=== PATIENT | female | born 1985 | race Caucasian/White ===

== ENCOUNTER 2022-12-22 18:10 | Emergency (ER) | payer OTHER, SELFPAY ==
--- NOTE | ~2022-12-22 | XR_ITS ---
EXAMINATION: XR ABDOMEN COMPLETE CLINICAL INDICATION: Constipation. COMPARISON: None available. TECHNIQUE: 2 views of the abdomen. FINDINGS: The bowel gas pattern is normal with no evidence of ileus or obstruction. Moderate stool noted in the descending colon No unusual soft tissue calcifications are noted. The bones are unremarkable. XR/XR abdomen min 2V IMPRESSION: 1. Moderate stool burden. 2. Nonobstructive bowel gas pattern.
--- NOTE | ~2022-12-22 | CT_ITS ---
EXAMINATION: CT ABDOMEN AND PELVIS WITH CONTRAST CLINICAL INFORMATION: Constipation for 9 days. Question small bowel obstruction. COMPARISON: None available. TECHNIQUE: Multidetector volumetric images were obtained from the superior aspect of the liver through the pubic symphysis following administration 85 mL of Omnipaque 350 intravenous contrast. Sagittal and coronal reformatted images were obtained on the technologist's workstation. Oral contrast: No This CT examination was performed using dose optimization techniques as appropriate, variously including the following: *Automated exposure control *Adjustment of mA and/or kV according to patient size (this includes techniques or standardized protocols for targeted exams where dose is matched to indication/reason for exam; i.e. extremities or head) *Use of iterative reconstruction technique DLP: 335 mGy-cm FINDINGS: LUNG BASES: Unremarkable. LIVER AND BILIARY TREE: Unremarkable. GALLBLADDER: Unremarkable. PANCREAS: Unremarkable. SPLEEN: Unremarkable. ADRENAL GLANDS: Unremarkable. KIDNEYS AND URETERS: Interpolar right renal subcentimeter hypoattenuating lesion, too small to characterize but statistically likely to represent a benign cyst for which no follow-up imaging is recommended. Otherwise unremarkable. GASTROINTESTINAL TRACT: Moderate colonic stool burden. No bowel dilation, wall thickening, or perienteric inflammatory findings. Normal appendix. VASCULAR: Unremarkable LYMPH NODES: No lymphadenopathy. PERITONEUM: No ascites. BLADDER: Unremarkable. PELVIC VISCERA: Unremarkable. ABDOMINAL AND PELVIC WALL: Unremarkable. OSSEOUS STRUCTURES: Unremarkable. CT/CT abdomen pelvis w IV con IMPRESSION: No acute abnormality of the abdomen or pelvis or evidence of bowel obstruction, as clinically queried.
--- NOTE | 2022-12-22 18:12 | ED_ITS ---
HPI - Nausea/Vomiting/Diarrhea General Chief complaint: Abdominal Pain Stated complaint: vomiting, constipation Time Seen by Provider: 12/22/22 18:59 Source: patient Mode of arrival: ambulatory Limitations: no limitations History of Present Illness HPI Narrative: 37 yold female presents to the ED for constipation for the past 9 days. Patient states abdomen distended, no bowel movements, and no flashes for the past 9 days. Patient states healthy diet and drink plenty of water. Patient states no relief with Doculase. Patient states no relief with [id number] constipation meds. Patient denies any weight loss. Patient states she is so constipated she vomited this morning after eating. Related Data Previous Rx's Medication Instructions Recorded lactulose 20 gram oral packet 20 g PO DAILY 2 days #2 ea 12/22/22 Allergies Allergy/AdvReac Type Severity Reaction Status Date / Time citalopram [From Celexa] Allergy Mild Rash Verified 12/22/22 18:13 Penicillins Allergy Mild Rash Verified 12/22/22 18:13 Review of Systems 2 Review of Systems: Constipation for 9 days Yes all other systems are reviewed and are negative PMFSH Social History Social History Smoked in Last 30 Days: No Use of substances other than those prescribed or required for medical reasons: Yes Substance Use Type: Marijuana Advance Directives: No Advance Directives Information Provided: No Physical Exam 2 Vital Signs: Vital Signs: Last Vital Signs Temp 98.8 F 12/22/22 20:35 Pulse 74 12/22/22 20:35 Resp 15 12/22/22 20:35 BP 121/7 L 12/22/22 20:35 Pulse Ox 100 12/22/22 20:35 O2 Del Method Room Air 12/22/22 20:35 BMI result Body Mass Index 19.9 Const: General: cooperative, healthy appearing, comfortable, no acute distress, well developed, alert, awake and Physically active O rientation/consciousness: oriented to person, oriented to place, oriented to time and patient oriented x3 HEENT: Head: Yes normal to inspection, Yes No palpable skull fracture present, Yes normocephalic and Yes atraumatic Eyes: General: appearance normal, both eyes and all related structures Neck: Neck: Yes normal visual inspection, Yes full ROM, Yes no lymphadenopathy, Yes no meningeal signs, Yes trachea midline, Yes supple, No anterior neck swelling and No tender Chest: Chest palpation & inspection: normal inspection of the chest and normal palpation of entire chest wall Resp: Effort & Inspection: normal respiratory effort and able to speak in complete sentences Auscultation: clear to auscultation bilaterally Cardio: Jugular venous distension: no JVD Heart sounds: S1 normal heart sound present and S2 normal heart sound present GI: Other: Negative hyperactive bowel sounds Inspection: Yes normal to inspection, No abdominal wall ecchymosis and Yes distended Palpation (GI): Soft to palpation, not firm, nontender, no guarding and not rigid : General: No CVA tenderness and Yes no CVA tenderness Back/Spine/Pelvis: Back: no CVA tenderness, No CVA tenderness and No back tenderness Skin: General skin exam: no rashes or lesions noted, elasticity normal and turgor normal Neuro: General: oriented to person, oriented to place, oriented to time, patient oriented x3, gait normal, tone normal, moves all extremities, Normal light touch and pain sensation, no meningeal signs, no focal motor deficits, CN's II-XI intact bilaterally and normal sensation to monofilament Extrem: General: Yes normal to inspection and Yes full ROM Psych: Appearance: grossly normal, well kempt and not disheveled Course Course Course Narrative: RME: 37-year-old female w/no sig PMHx presenting to the ED complaining of constipation x7-8 days with abdominal distention and N/V. Took OTC meds w/o relief. Denies still passing gas x6 days. denies similar sx in the past denies hx abdominal surgery or new meds. denies feeling urge to go Labs, UA, Abdomen XR ordered Full HPI, ROS and PE to be performed by primary ED provider. Medications Administered Discontinued Medications Generic Name Dose Route Start Last Admin Trade Name Freq PRN Reason Stop Dose Admin Iohexol 100 ml 12/22/22 20:55 12/22/22 20:55 Iohexol 350 Mg/Ml 100 Ml Infus..Btl IV 12/22/22 20:56 85 ml ONCE ONE Administration Lactulose 20 gm 12/22/22 19:42 12/22/22 19:53 Lactulose 20 Gm/30 Ml Solution PO 12/22/22 19:43 20 gm ONCE ONE Administration Magnesium Hydroxide 30 ml 12/22/22 21:46 12/22/22 21:53 Milk Of Magnesia 30 Ml Oral.Susp PO 12/22/22 21:47 30 ml ONCE ONE Administration Polyethylene Glycol 17 gm 12/22/22 19:42 12/22/22 19:54 Polyethylene Glycol 3350 17 Gm Powd.Pack PO 12/22/22 19:43 17 gm ONCE ONE Administration Medical Decision Making Medical Decision Making [facility] Narrative: 37-year-old female presents to ED with constipation for 9 days. Patient states vomiting and no flashes. Patient states abdomen distended. Patient denies any weight loss. Initial labs are normal. X-ray shows constipation no signs of bowel obstruction. Due to this being new for patient will send for CT scan to rule out small-bowel obstruction or mass. 9: 36pm Patient did not have a bowel movement. Abdominal CT scan negative for any mass, small bowel obstruction or any abdominal etiology. Patient will be discharged with constipation medication. Patient will be given information for Gastroenterology for follow-up. Patient not in distress Differential Diagnosis Differential Diagnoses: The differential diagnosis associated with the presentation includes (Constipation, small-bowel obstruction, mass, hernia) Admission/Observation Consideration of admission/observation: Escalation of care including admission/observation considered Lab Data [facility] Lab Attestation statement: I reviewed the patient's lab results. 12/22/22 19:08 12/22/22 19:08 Labs: Lab Results 12/22/22 Range/Units 19:08 WBC 6.4 (4.8-10.8) X10*3/uL RBC 3.93 L (4.20-5.50) X10*6/uL Hgb 12.4 (12.0-16.0) g/dl Hct 36.7 L (37.0-47.0) % MCV 93.4 (80.0-98.0) fL MCH 31.6 (27.0-33.0) pg MCHC 33.8 (31.0-35.0) g/dl RDW 12.2 (11.0-16.0) % Plt Count 264 (160-400) X10*3/uL MPV 9.4 (9.4-12.3) fL Immature Gran % (Auto) 0.2 (0.0-0.4) % Neut % (Auto) 58.0 (45-73) % Lymph % (Auto) 30.2 (20-40) % [place] % (Auto) 8.9 (2-11) % Eos % (Auto) 2.2 (0-4) % Baso % (Auto) 0.5 (0-2) % Lymph # (Auto) 1.9 (1.2-4.9) X10*3/uL [place] # (Auto) 0.6 (0.1-1.2) X10*3/uL Eos # (Auto) 0.1 (0.0-0.4) X10*3/uL Baso # (Auto) 0.0 (0.0-0.2) X10*3/uL Abs Immat Gran (auto) 0.01 (0.00-0.03) X10*3/uL Absolute Neuts (auto) 3.7 (2.0-8.3) x10*3/uL Absolute Nucleated RBC 0.000 (0.0-0.012) X10*3/uL Nucleated RBC % (auto) 0.0 (0.0-0.2) /100WBC Sodium 138 (135-145) mmol/L Potassium 3.7 (3.3-5.1) mmol/L Chloride 105 (96-108) mmol/L Carbon Dioxide 27 (22-29) mmol/L Anion Gap 10 L (12-20) BUN 9 (9-16) mg/dL Creatinine 0.98 (0.5-1.4) mg/dL Estim Creat Clear Calc 73.8 Estimated GFR > 60 Random Glucose 92 (60-115) mg/dL Calcium 9.1 (8.4-10.2) mg/dL Magnesium 1.9 (1.6-2.6) mg/dL Total Bilirubin 0.2 (0.0-1.0) mg/dL Direct Bilirubin < 0.2 (0.0-0.5) mg/dL AST 24 (5-31) U/L ALT 24 (0-31) U/L Alkaline Phosphatase 44 (39-117) U/L Total Protein 6.9 (6.5-8.0) g/dL Albumin 4.2 (3.5-5.0) g/dL Lipase 21 (8-78) U/L Urine Color Yellow Urine Appearance Clear Urine pH 6.5 (5.0-9.0) Ur Specific [place] 1.010 (1.005-1.025) Urine Protein Negative (Neg-Trace) mg/dL Urine Glucose (UA) Negative (Negative) mg/dL Urine Ketones Negative (Negative) mg/dL Urine Blood Negative (Negative) Urine Nitrite Negative (Negative) Ur Leukocyte Esterase Trace H (Negative) Urine RBC 0-2 (0-2) /HPF Urine WBC 0-5 (0-5) /HPF Ur Squamous Epith Cells 3-5 (0-2) /HPF Urine Bacteria None Seen (None Seen) Hyaline Casts 0-2 (0-2) /LPF Urine Test NEGATIVE (NEGATIVE) Independent Interpretation I performed an independent interpretation of an: Plain X-Ray and CT Scan Radiology Impression Discussion of test interpretation with radiology: I have reviewed the radiologist's reading. Independent Historian Clinical information obtained from an independent historian. History obtained from or confirmed by: Spouse External Record Review External record reviewed: Other (Prior visits) Prescription Management I considered prescription management with: Other (constipation) Discharge Plan Discharge Clinical Impression: Constipation Patient Disposition: Home, Self-Care Instructions: Constipation (ED) Additional Instructions: Recommend follow-up with private sector executive and primary care provider. Return to the ED immediate for any abdominal pain, nausea, vomiting, inability tolerate solid food/liquid, fever, chills, dysuria, hematuria, or any other concerning symptoms. Prescriptions: New lactulose 20 gram packet 20 g PO DAILY 2 Days Qty: 2 0RF Referrals: [facility] [Provider Group] (constipation for 9 days) Stand Alone Forms: Work/School Release Interventions: ED Discharge Assessment Last Done: 12/22/22 22:43 Discharge Date/Time: 12/22/22 22:43 Print Language: Czech
[2022-12-22 18:13] VITALS: BP 141/81; PULSE 83; RESP 18; TEMP 36.9; O2SAT 99; BMI 19.9
[2022-12-22 18:31] VITALS: BP 140/83; PULSE 79; RESP 16; TEMP 37.1; O2SAT 99
--- NOTE | 2022-12-22 19:10 | PC.NURSE ---
this rn assumed care of pt. pt a&ox4, respirations even and unlabored. pt denies pain at this time. resting in stretcher comfortably. pt urine obtained and sent to lab at this time.
[2022-12-22 19:14] LABS: MANUAL DIFF FLAG NO
[2022-12-22 19:16] LABS: Appearance Urine Clear; Color Urine Yellow; Glucose Urine UA Negative (Negative); Leukocyte Esterase Urine Trace (Negative); Nitrite Urine Negative (Negative); PH 6.5 (5.0-9.0); UMIC TRIGGER UACC YES; Urine Blood Negative (Negative); Urine Ketones Negative (Negative); Urine Protein Negative (Neg-Trace)
[2022-12-22 19:17] LABS: UPreg QC Valid YES; Urine Pregnancy NEGATIVE (NEGATIVE)
[2022-12-22 19:18] LABS: Basophils Percent Auto 0.5 % (0-2); Eosinophils Absolute Auto 0.1 X10*3/uL (0.0-0.4); Eosinophils Percent Auto 2.2 % (0-4); Hematocrit 36.7 % (37.0-47.0); Hemoglobin 12.4 g/dl (12.0-16.0); Imm Gran Abs Auto 0.01 X10*3/uL (0.00-0.03); Imm Gran Pct Auto 0.2 % (0.0-0.4); Lymphocytes Absolute Auto 1.9 X10*3/uL (1.2-4.9); Lymphocytes Percent Auto 30.2 % (20-40); Mean Corpuscular HGB Conc 33.8 g/dl (31.0-35.0); Mean Corpuscular Hemoglobin 31.6 pg (27.0-33.0); Mean Corpuscular Volume 93.4 fL (80.0-98.0); Mean Platelet Volume 9.4 fL (9.4-12.3); Monocytes Absolute Auto 0.6 X10*3/uL (0.1-1.2); Monocytes Percent Auto 8.9 % (2-11); Neutrophils Absolute Auto 3.7 x10*3/uL (2.0-8.3); Platelet Count 264 X10*3/uL (160-400); Red Blood Count 3.93 X10*6/uL (4.20-5.50); Red Cell Distribution Width 12.2 % (11.0-16.0); White Blood Count 6.4 X10*3/uL (4.8-10.8)
[2022-12-22 19:20] LABS: Bacteria Urine None Seen (None Seen); Hyaline Casts Urine 0-2 /LPF (0-2); RBC Urine 0-2 /HPF (0-2); WBC Urine 0-5 /HPF (0-5)
[2022-12-22 19:31] LABS: Alanine Aminotransferase 24 U/L (0-31); Albumin Level 4.2 g/dL (3.5-5.0); Alkaline Phosphatase 44 U/L (39-117); Anion Gap 10 (12-20); Aspartate Amino Transferase 24 U/L (5-31); Bilirubin Direct < 0.2 mg/dL (0.0-0.5); Bilirubin Total 0.2 mg/dL (0.0-1.0); Blood Urea Nitrogen 9 mg/dL (9-16); Calcium 9.1 mg/dL (8.4-10.2); Carbon Dioxide 27 mmol/L (22-29); Chloride 105 mmol/L (96-108); Creatinine Clr Calc Pharmacy 73.8; Estimated Glomerular Filt Rate > 60; Glucose Random 92 mg/dL (60-115); Lipase 21 U/L (8-78); Magnesium 1.9 mg/dL (1.6-2.6); Potassium 3.7 mmol/L (3.3-5.1); Sodium 138 mmol/L (135-145); Total Protein 6.9 g/dL (6.5-8.0)
[2022-12-22] MEDS: Lactulose 20 GM/30 ML SOLUTION PO (19:53)
[2022-12-22] MEDS: polyethylene glycoL 3350 17 GM POWD.PACK PO (19:54)
[2022-12-22 20:35] VITALS: BP 121/7; PULSE 74; RESP 15; TEMP 37.1; O2SAT 100
[2022-12-22] MEDS: iohexoL 350 MG/ML 100 ML INFUS..BTL IV (20:55)
[2022-12-22] MEDS: Milk of Magnesia 30 ML ORAL.SUSP PO (21:53)
== END 2022-12-22 22:43 | disposition home or self-care (01) ==
PROVIDERS: Physician Assistant; Emergency Provider Emergency Medicine
DX: K59.00 Constipation, unspecified (principal); R11.2 Nausea with vomiting, unspecified; R14.0 Abdominal distension (gaseous)
CPT/HCPCS: 36415; 74019; 74177; 80048; 80076; 81001; 81025; 83690; 83735; 85025; 99284; Q9967

== ENCOUNTER 2023-08-27 17:41 | Emergency (ER) | payer MEDICAID, SELFPAY ==
--- NOTE | ~2023-08-27 | XR_ITS ---
EXAMINATION: CHEST 2 VIEWS CLINICAL INFORMATION: CP. COMPARISON: No recent pertinent prior studies are available for comparison. TECHNIQUE: PA and lateral views of the chest obtained. FINDINGS: The lungs are well expanded. No focal infiltrate, effusion, edema, or pneumothorax. Cardiac and mediastinal silhouettes are within normal limits for technique. No acute bony abnormality seen XR/XR chest 2V IMPRESSION: No evidence of acute disease
--- NOTE | 2023-08-27 17:43 | ECG_ITS ---
Test Reason : CHEST PAIN Blood Pressure : / mmHG Vent. Rate : 076 BPM Atrial Rate : 076 BPM P-R Int : 112 ms QRS Dur : 096 ms QT Int : 392 ms P-R-T Axes : 073 046 050 degrees QTc Int : 441 ms Normal sinus rhythm Normal ECG No previous ECGs available Referred By: Imelda English Electronically Signed By:Aston Raymundo
[2023-08-27 18:14] VITALS: BP 114/74; PULSE 78; RESP 18; TEMP 36.6; O2SAT 98; BMI 19.0
--- NOTE | 2023-08-27 19:30 | ED_ITS ---
HPI - Chest Pain General Chief Complaint: Chest Pain Stated Complaint: Chest pain Related Data Previous Rx's ?Medication ?Instructions ?Recorded lactulose 20 gram oral packet 20 g PO DAILY 2 days #2 ea 12/22/22 Allergies Allergy/AdvReac Type Severity Reaction Status Date / Time citalopram [From Celexa] Allergy Mild Rash Verified 08/27/23 18:17 Penicillins Allergy Mild Rash Verified 08/27/23 18:17 [facility] Social History Social History Substance Use Type: Marijuana Advance Directives: No Advance Directives Information Provided: No Do you have a plan to hurt others: No Plan Physical Exam 2 Vital Signs: Vital Signs: Last Vital Signs Temp 98.8 F 08/27/23 21:51 Pulse 74 08/27/23 21:51 Resp 20 08/27/23 21:51 BP 130/79 08/27/23 21:51 Pulse Ox 100 08/27/23 21:51 O2 Del Method Room Air 08/27/23 21:51 BMI result Body Mass Index 19.0 Course Course Course Narrative: This is an RME: Additional HPI, ROS, PE not included below will be deferred to primary provider. RME assessment and note performed by: Imelda English PA-C This is a 38-year-old female who presents to the emergency department with complaints of midsternal chest pain x1 day. She also reports some heart palpitations and feeling as though there has an elephant on her chest. No pain radiation, no nausea also feeling short of breath. Plan: EKG, chest x-ray, further ER evaluation needed. Reevaluation(s) Reevaluation #1: Patient left without completing treatment. Medical Decision Making Lab Data 08/27/23 19:57 08/27/23 19:57 Labs: Lab Results 08/27/23 08/27/23 08/27/23 Range/Units 19:56 19:57 22:02 WBC 7.3 (4.8-10.8) X10*3/uL RBC 4.23 (4.20-5.50) X10*6/uL Hgb 13.4 (12.0-16.0) g/dl Hct 38.4 (37.0-47.0) % MCV 90.8 (80.0-98.0) fL MCH 31.7 (27.0-33.0) pg MCHC 34.9 (31.0-35.0) g/dl RDW 12.5 (11.0-16.0) % Plt Count 268 (160-400) X10*3/uL MPV 9.5 (9.4-12.3) fL Immature Gran % (Auto) 0.1 (0.0-0.4) % Neut % (Auto) 65.2 (45-73) % Lymph % (Auto) 27.0 (20-40) % [place] % (Auto) 5.5 (2-11) % Eos % (Auto) 1.9 (0-4) % Baso % (Auto) 0.3 (0-2) % Lymph # (Auto) 2.0 (1.2-4.9) X10*3/uL [place] # (Auto) 0.4 (0.1-1.2) X10*3/uL Eos # (Auto) 0.1 (0.0-0.4) X10*3/uL Baso # (Auto) 0.0 (0.0-0.2) X10*3/uL Abs Immat Gran (auto) 0.01 (0.00-0.03) X10*3/uL Absolute Neuts (auto) 4.7 (2.0-8.3) x10*3/uL Absolute Nucleated RBC 0.000 (0.0-0.012) X10*3/uL Nucleated RBC % (auto) 0.0 (0.0-0.2) /100WBC Sodium 141 (135-145) mmol/L Potassium 3.9 (3.3-5.1) mmol/L Chloride 104 (96-108) mmol/L Carbon Dioxide 27 (22-29) mmol/L Anion Gap 14 (12-20) BUN 8 L (9-16) mg/dL Creatinine 0.84 (0.5-1.4) mg/dL Estim Creat Clear Calc 79.0 Estimated GFR > 60 Random Glucose 94 (60-115) mg/dL Calcium 9.4 (8.4-10.2) mg/dL Magnesium 2.1 (1.6-2.6) mg/dL Total Bilirubin 0.3 (0.0-1.0) mg/dL Direct Bilirubin 0.1 (0.0-0.5) mg/dL AST 18 (5-31) U/L ALT 14 (0-31) U/L Alkaline Phosphatase 47 (39-117) U/L Troponin I High Sens < 2.7 < 2.7 (<3.5-17.0) ng/L Total Protein 7.3 (6.5-8.0) g/dL Albumin 4.6 (3.5-5.0) g/dL Beta HCG, Quant < 2 mIU/mL Influenza Type A (PCR) NEGATIVE (Negative) Influenza Type B (PCR) NEGATIVE (Negative) RSV RNA Qual (PCR) NEGATIVE (Negative) SARS-CoV-2 RNA (RT-PCR) NEGATIVE (Negative) Discharge Plan Discharge Clinical Impression: Chest pain Patient Disposition: Left W/O Completing Treatment Prescriptions: No Action lactulose 20 gram packet 20 g PO DAILY 2 Days Qty: 2 0RF Discharge Date/Time: 08/28/23 01:19
[2023-08-27 20:01] LABS: MANUAL DIFF FLAG NO
[2023-08-27 20:02] LABS: Basophils Percent Auto 0.3 % (0-2); Eosinophils Absolute Auto 0.1 X10*3/uL (0.0-0.4); Eosinophils Percent Auto 1.9 % (0-4); Hematocrit 38.4 % (37.0-47.0); Hemoglobin 13.4 g/dl (12.0-16.0); Imm Gran Abs Auto 0.01 X10*3/uL (0.00-0.03); Imm Gran Pct Auto 0.1 % (0.0-0.4); Mean Corpuscular HGB Conc 34.9 g/dl (31.0-35.0); Mean Corpuscular Hemoglobin 31.7 pg (27.0-33.0); Mean Corpuscular Volume 90.8 fL (80.0-98.0); Mean Platelet Volume 9.5 fL (9.4-12.3); Monocytes Absolute Auto 0.4 X10*3/uL (0.1-1.2); Monocytes Percent Auto 5.5 % (2-11); Neutrophils Absolute Auto 4.7 x10*3/uL (2.0-8.3); Neutrophils Percent Auto 65.2 % (45-73); Platelet Count 268 X10*3/uL (160-400); Red Blood Count 4.23 X10*6/uL (4.20-5.50); Red Cell Distribution Width 12.5 % (11.0-16.0); White Blood Count 7.3 X10*3/uL (4.8-10.8)
[2023-08-27 20:27] LABS: Alanine Aminotransferase 14 U/L (0-31); Albumin Level 4.6 g/dL (3.5-5.0); Alkaline Phosphatase 47 U/L (39-117); Anion Gap 14 (12-20); Aspartate Amino Transferase 18 U/L (5-31); Bilirubin Direct 0.1 mg/dL (0.0-0.5); Bilirubin Total 0.3 mg/dL (0.0-1.0); Blood Urea Nitrogen 8 mg/dL (9-16); Calcium 9.4 mg/dL (8.4-10.2); Carbon Dioxide 27 mmol/L (22-29); Chloride 104 mmol/L (96-108); Estimated Glomerular Filt Rate > 60; Glucose Random 94 mg/dL (60-115); HCG Quantitative < 2 mIU/mL; Magnesium 2.1 mg/dL (1.6-2.6); Potassium 3.9 mmol/L (3.3-5.1); Sodium 141 mmol/L (135-145); Total Protein 7.3 g/dL (6.5-8.0); Troponin-I High Sensitivity < 2.7 ng/L (<3.5-17.0)
[2023-08-27 20:39] LABS: Influenza A PCR NEGATIVE (Negative); Influenza B PCR NEGATIVE (Negative); Resp Syncy Virus RNA Qual PCR NEGATIVE (Negative); SARS COV2 PCR INHOUSE NEGATIVE (Negative)
[2023-08-27 21:51] VITALS: BP 130/79; PULSE 74; RESP 20; TEMP 37.1; O2SAT 100
[2023-08-27 22:44] LABS: Troponin-I High Sensitivity < 2.7 ng/L (<3.5-17.0)
--- NOTE | 2023-08-28 01:18 | PC.NURSE ---
not in waiting room at this time.
== END 2023-08-28 01:19 | disposition left against medical advice (07) ==
LOC: HO.ED 08-28 01:17
PROVIDERS: Physician Assistant Medical; Emergency Provider Emergency Medicine
DX: R07.9 Chest pain, unspecified (principal); Z03.818 Encounter for observation for suspected exposure to other biological agents ruled out
CPT/HCPCS: 0241U; 36415; 71046; 80048; 80076; 83735; 84484; 84702; 85025; 93005; 99283

== ENCOUNTER → 2023-08-27 17:43 | Outpatient (BNV) | payer MEDICAID, SELFPAY | PROVIDERS: Emergency Provider Emergency Medicine; Visit Provider Internal Medicine Cardiovascular Disease | DX: R07.9 Chest pain, unspecified (principal) | CPT/HCPCS: 93010 ==

== ENCOUNTER 2025-02-15 23:00 | Emergency (ER) | payer MEDICAID, SELFPAY ==
--- OUTSIDE RECORDS SUMMARY | 2025-02-15 05:00 | XMS_ITS ---
Author Organization [facility] Address [address] [place] [address] Care Team Providers Care Obedience Trainer Name Role Phone JARRETTKALE Primary Care Provider [phone] OMAR SHARIF [phone] Allergies Allergen (clinical drug ingredient) Drug/Non Drug Allergy documented on EMR Reaction Allergy Type Onset Date Status citalopram CeleXA rash (at 40mg at 20mg no problem) Drug Allergy Active paroxetine Paxil rash Drug Allergy Active quetiapine SEROquel sedated Drug Allergy Active oxycodone oxyCODONE vomiting/balance issues Drug Allergy Active Penicillin Rash Drug Allergy Active Reason For Referral Reason Increasing issues wi th postprandial abdominal bloating, diarrhea and intermittent constipation. Guaiac positive stool on rectal exam. Diagnosis 1 Postprandial abdomin al bloating (R14.0) Diagnosis 2 Guaiac + stool (R19. 5) Diagnosis 3 Intermittent constip ation (K59.09) Diagnosis 4 Chronic diarrhea (K5 2.9) Referral Organization [facility] soci[facility] Referring Provider First Name OMAR Referring Provider Last Name CHANTE Referring Provider Speciality Internal M edicine Referred Provider Specialty Gastroentero logy General Notes OMAR SHARIF 1 10:33:06 AM > Please send referral to [facility] or if unable to get in can then switch to [facility] for: 3 years with waxing and waning abdominal bloating after eating, diarrhea, intermittent constipation, fatigue and weakness as well as nausea with only rare episodes of vomiting. Family history of colon cancer in maternal grandmother requiring colostomy. Referral Priority Urgent REASON FOR VISIT Stomach issues Medications Medication SIG (Take, Route, Frequency, Duration) Notes Start Date End Date Status buPROPion HCl ER (XL) 300 MG Tablet Extended Release 24 Hour 1 tablet in the morning Orally Once a day Active Ciclopirox 8 % Solution 1 application Ex ternally Once a day 06/18/2024 Active Escitalopram Oxalate 20 MG Tablet 1 tablet orally Once a day Active Social History Tobacco Use: Social History Observation Description Date Details (start date - stop date) Former Smoker NA - NA Sex Assigned At : Social History Observation Description Sex Assigned At Female Social History Tobacco Use: Social Info Question Answer Notes Tobacco Control (Standard) Tobacco use: Former smoker How long has it been since you last smoked? 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 asbestos exposure: no Past year's travels: [place] alcohol use: no drug use: no Hobbies/Exercise habits: Yoga, g ardening, walking Coffee/Tea/Soda: yes 1 coffee, No te a or soda Marital Status single experience no Living with boyfriend Pets 1 dog smokers in household no Section Notes: quit in 2019 smoked 5 cigare ttes a day Vital Signs Blood pressure systolic 112 mm Hg 02/16/20 25 Blood pressure diastolic 74 mm Hg 025 Height 65.5 in 02/15/2025 Weight 120 lbs 02/15/2025 BMI 19.66 kg/m2 02/15/2025 Encounters Encounter Location Date Provider Diagnosis [facility] [address] [place] [address] 02/15/2025 OMAR SHARIF Postprandial abdominal bloating R14.0 ; Chronic diarrhea K52.9 ; Intermittent constipation K59.09 and Guaiac + stool R19.5 Assessments Encounter Date Diagnosis (ICD Code) Assessment Notes Treatment Notes Treatment Clinical Notes Section Notes 02/15/2025 Postprandial abdominal bloating (ICD-10 - R14.0) Labs ordered. Abdominal/pelvic CT ordered and pending approval. Referral to GI placed. Encouraged low-fat, lean protein, high-fiber diet. Avoid fried and fatty foods, junk food, alcohol. Watch coffee intake. Plenty of liquids. Further treatment and/or evaluation will be based on test results and GI evaluation. 02/15/2025 Chronic diarrhea (ICD-10 - K52.9) See postprandial abdominal bloating plan 02/15/2025 Intermittent constipation (ICD-10 - K59.09) See postprandial abdominal bloating plan 02/15/2025 Guaiac + stool (ICD-10 - R19.5) See postprandial abdominal bloating plan Plan Of Treatment Treatment Notes Assessment Notes Postprandial abdominal bloating Labs ord ered. Abdominal/pelvic CT ordered and pending approval. Referral to GI placed. Encouraged low-fat, lean protein, high-fiber diet. Avoid fried and fatty foods, junk food, alcohol. Watch coffee intake. Plenty of liquids. Further treatment and/or evaluation will be based on test results and GI evaluation. Chronic diarrhea See postprandial abd ominal bloating plan Intermittent constipation See postprandi al abdominal bloating plan Guaiac + stool See postprandial abd ominal bloating plan Pending Test Test Name Order Date CT Abdomen & Pelvis with Oral and IV con trast 02/15/2025 Future Test Test Name Order Date CBC With Differential/Platelet-[id number] Hepatic Function Panel [id number] 2024 Celiac Ab tTG DGP TIgA-[id number] 02/15/2025 Acute Hepatitis-[id number] 02/15/2025 Lipase-[id number] 02/15/2025 Amylase-[id number] 02/15/2025 BMP8+eGFR-[id number] 02/15/2025 Referrals Referral Date Details 02/15/2025 02/15/2025, Increasi ng issues with postprandial abdominal bloating, diarrhea and intermittent constipation. Guaiac positive stool on rectal exam. Next Appt Details Follow Up: prn, Reason: Labs ordered, CT abdomen and pelvis ordered pending approval, referral to GI placed. Further treatment and/or evaluation based on workup. Follow-up with Dr. Daily as scheduled in June, sooner if needed. Provider Name:KALE Graham, 06/21/2025 02:15:00 PM, [address] [place] [address], [phone], History and Physical Notes * HPI (History of Present Illness) Category Sub-Category Detail Notes Category Not es General Patient of Dr. Daily seen today for evaluation of chronic GI issues over the last 3 years that have been worsening especially over the last month. Patient notes starting in 2021 she was having issues with constipation at times and bloating. Symptoms waxed and waned throughout 2021 and 2022. Starting in 2023 started developing symptoms with diarrhea that would come and go primarily after eating along with abdominal bloating. Symptoms started to worsen in 2024 with increased bloating every time she would eat and diarrhea requiring her to run to the bathroom. Having yellow/bile colored stools and occasionally coffee ground looking stools with the diarrhea. She was feeling bloated and nauseous on a daily basis. Fatigue and headaches have been common over the last year. Notes with the diarrhea and unpleasant/foul odor. Symptoms seemed to increase in the summer 2024 and then worse over the last month. States anytime she eats she gets the symptoms. She does occasionally feel dizzy. She has not noted any abnormal weight loss, and has actually gained 3 pounds since her last visit. She did have an episode of vomiting in December but denied any blood in the vomitus or coffee-ground emesis. Here today she is symptom-free and notes that she has some good days. Last symptoms were yesterday evening. Seem to be worse after eating fried or fatty foods, holiday type foods , but does happen no matter what she eats just not as bad. Examination Category Sub-Category Detail Notes Category Not es General Examination HEENT: NC/AT, EOMI,PERRL, an d nonicteric Neck: supple, no lymphaden opathy Heart: RRR, no murmurs, cli cks or rubs, normal S1S2 Lungs: clear to auscultatio n Abdomen: soft, non tender/non distended, no masses palpated, no hepatosplenomegaly, normal active bowel sounds Extremities: no clubbing , cyanos is, or edema, normal ROM General Appearance no apparent distress , pleasant Skin: normal, no rash Neuro alert and oriented x 3, CN 2-12 intact, motor 5/5 bilaterally proximally and distally in all 4 extremities, no focal abnormality, gait normal Back: no CVA tenderness Rectal Chaparoned by Sonja Gore MA. External rectal exam was negative for any acute findings just small area of hemorrhoidal skin tag. No obvious bleeding or masses externally. Internal digital rectal exam revealed no evidence of masses or obvious lesions. Stool was mildly guaiac positive but not melanic. Consultation Request Notes Referral Date Referring Provider Referred Provider Not sarah 02/15/2025 OMAR SHARIF Increasing i ssues with postprandial abdominal bloating, diarrhea and intermittent constipation. Guaiac positive stool on rectal exam. Progress Notes * RITESH BEATTY EDOB: [birth year] (39 yo F)Acc No.[id number]:02/15/2025 Progress Notes Patient: RITESH HARRIS Provider: Samina ZAYAS :1985 A ge:39 Y S ex:Female Date:02/15/2025 Address:[address] [place] [address] [place], [phone] Pcp:KALE JARRETT Subjective: * Chief Complaints: * S tomach issues * HPI: G eneral: Patient of Dr. Daily seen today for evaluation of chronic GI issues over the last 3 years that have been worsening especially over the last month. Patient notes starting in 2021 she was having issues with constipation at times and bloating. Symptoms waxed and waned throughout 2021 and 2022. Starting in 2023 started developing symptoms with diarrhea that would come and go primarily after eating along with abdominal bloating. Symptoms started to worsen in 2024 with increased bloating every time she would eat and diarrhea requiring her to run to the bathroom. Having yellow/bile colored stools and occasionally coffee ground looking stools with the diarrhea. She was feeling bloated and nauseous on a daily basis. Fatigue and headaches have been common over the last year. Notes with the diarrhea and unpleasant/foul odor. Symptoms seemed to increase in the summer 2024 and then worse over the last month. States anytime she eats she gets the symptoms. She does occasionally feel dizzy. She has not noted any abnormal weight loss, and has actually gained 3 pounds since her last visit. She did have an episode of vomiting in December but denied any blood in the vomitus or coffee-ground emesis. Here today she is symptom-free and notes that she has some good days. Last symptoms were yesterday evening. Seem to be worse after eating fried or fatty foods, holiday type foods , but does happen no matter what she eats just not as bad. * ROS: S ee HPI. 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 * Hospitalization/Major Diagno stic Procedure: Partial Hospitalization for Eating Disorder 2008 [facility] [place] ankle pain 10/2016 hemorrhoids 09/05 Hospitalization Verified. * Family History: F ather: alive 66 yrs, healthy . M other: alive 64 yrs, healthy . S ibling # 1: alive 44 yrs, healthy . M aternal Grand Mother: colon cancer (age 70s). 1 brother(s) - healthy. .?Family History Verified.. No family history of breast cancer. [id number] [facility]/ [facility] (02/[facility]). * Social History: G eneral: S mokers in household: no. Alcohol use: no. Drug use: no. Coffee/Tea/Soda: yes, 1 coffee, No tea or soda. Marital Status: single. Living with: boyfriend. 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 Asbestos exposure: no. experience: no. Past year's travels: [place] 2024. Hobbies/Exercise habits: Yoga, gardening, walking. Pets: 1 dog. T obacco Use: T obacco Control (Standard) T obacco use: F ormer smoker, H ow long has it been since you last smoked? 1 -5 years, A dditional Findings: Tobacco user L ight cigarette smoker (1-9 cigs/day). Social History Verified. q uit in 2019 smoked 5 cigarettes a day. * Medications: T akingCiclopirox 8 % Solution 1 application Externally Once a day buPROPion HCl ER (XL) 300 MG Tablet Extended Release 24 Hour 1 tablet in the morning Orally Once a day Escitalopram Oxalate 20 MG Tablet 1 tablet orally Once a day Medication List reviewed and reconciled with the patientTaking Ciclopirox 8 % Solution 1 application Externally Once a day Taking buPROPion HCl ER (XL) 300 MG Tablet Extended Release 24 Hour 1 tablet in the morning Orally Once a day Taking Escitalopram Oxalate 20 MG Tablet 1 tablet orally Once a day Medication List reviewed and reconciled with the patient * Allergies: P enicillin: RashCeleXA: rash (at 40mg at 20mg no problem)oxyCODONE: vomiting/balance issuesSEROquel: sedatedPaxil: rashyesAllergies Verified. Objective: * Vitals: H t: 65.5 in, Wt: 120 lbs, Temp: 96.9 F, HR: 96 /min, BP:112/74mm Hg, BMI:19.66Index. * Examination: G eneral Examination: General Appearance n o apparent distress, pleasant. H EENT: N C/AT, EOMI,PERRL, and nonicteric. N hossein: s upple, no lymphadenopathy. H eart: R RR, no murmurs, clicks or rubs, normal S1S2. L ungs: c lear to auscultation. A bdomen: s oft, non tender/non distended, no masses palpated, no hepatosplenomegaly, normal active bowel sounds. B ack: n o CVA tenderness. S kin: n ormal, no rash. E xtremities: n o clubbing , cyanosis, or edema, normal ROM. R ectal C haparoned by Haley Gore MA. External rectal exam was negative for any acute findings just small area of hemorrhoidal skin tag. No obvious bleeding or masses externally. Internal digital rectal exam revealed no evidence of masses or obvious lesions.? Stool was mildly guaiac positive but not melanic. N euro a lert and oriented x3, CN 2-12 intact, motor 5/5 bilaterally proximally and distally in all 4 extremities, no focal abnormality, gait normal. Assessment: * Assessment: 1. P ostprandial abdominal bloating - R14.0 (Primary) 2 . C hronic diarrhea - K52.9 3 . I ntermittent constipation - K59.09 4 . G uaiac + stool - R19.5 Plan: * Treatment: 2. C hronic diarrhea L AB: CBC With Differential/Platelet-[id number] (Ordered for 02/15/2025) L AB: BMP8+eGFR-693975 (Ordered for 02/15/2025) L AB: Amylase-355864 (Ordered for 02/15/2025) L AB: Hepatic Function Panel [id number] (Ordered for 02/15/2025) L AB: Lipase-540809 (Ordered for 02/15/2025) L AB: Celiac Ab tTG DGP TIgA-[id number] (Ordered for 02/15/2025) L AB: Acute Hepatitis-746993 (Ordered for 02/15/2025) I maging: CT Abdomen & Pelvis with Oral and IV contrast Notes: See postprandial abdominal bloating plan ? Referral To:Gastroenterology Reason:Increasing issues with postprandial abdominal bloating, diarrhea and intermittent constipation. Guaiac positive stool on rectal exam. 3. I ntermittent constipation L AB: CBC With Differential/Platelet-337567 (Ordered for 02/15/2025) L AB: BMP8+eGFR-857901 (Ordered for 02/15/2025) L AB: Amylase-911389 (Ordered for 02/15/2025) L AB: Hepatic Function Panel [id number] (Ordered for 02/15/2025) L AB: Lipase-504258 (Ordered for 02/15/2025) L AB: Celiac Ab tTG DGP TIgA-[id number] (Ordered for 02/15/2025) L AB: Acute Hepatitis-037960 (Ordered for 02/15/2025) I maging: CT Abdomen & Pelvis with Oral and IV contrast Notes: See postprandial abdominal bloating plan ? Referral To:Gastroenterology Reason:Increasing issues with postprandial abdominal bloating, diarrhea and intermittent constipation. Guaiac positive stool on rectal exam. 4. G uaiac + stool L AB: CBC With Differential/Platelet-954752 (Ordered for 02/15/2025) L AB: BMP8+eGFR-663195 (Ordered for 02/15/2025) L AB: Amylase-495084 (Ordered for 02/15/2025) L AB: Hepatic Function Panel [id number] (Ordered for 02/15/2025) L AB: Lipase-557182 (Ordered for 02/15/2025) L AB: Celiac Ab tTG DGP TIgA-[id number] (Ordered for 02/15/2025) L AB: Acute Hepatitis-335774 (Ordered for 02/15/2025) I maging: CT Abdomen & Pelvis with Oral and IV contrast Notes: See postprandial abdominal bloating plan ? Referral To:Gastroenterology Reason:Increasing issues with postprandial abdominal bloating, diarrhea and intermittent constipation. Guaiac positive stool on rectal exam. * Follow Up: p rn (Reason: Labs ordered, CT abdomen and pelvis ordered pending approval, referral to GI placed. Further treatment and/or evaluation based on workup. Follow-up with Dr. Daily as scheduled in June, sooner if needed.) * Sign off status: Completed true * Provider: Radha SHARIF, PCrow. Date: Generated for Shayy jeffries/Augustine/Felicitaitting on: 11:31 PM EST
[2025-02-15 23:11] VITALS: BP 143/88; PULSE 96; RESP 20; TEMP 36.9; O2SAT 99; BMI 19.4
--- NOTE | 2025-02-15 23:26 | ED.GENADULT ---
HPI - General Adult General Chief complaint: Abdominal Pain Stated complaint: Keratin levels elevated Related Data Previous Rx's ?Medication ?Instructions ?Recorded lactulose 20 gram oral packet 20 g PO DAILY 2 days #2 ea 12/22/22 Allergies Allergy/AdvReac Type Severity Reaction Status Date / Time citalopram (From Celexa) Allergy Mild Rash Verified 02/15/25 23:17 Penicillins Allergy Mild Rash Verified 02/15/25 23:17 [facility] Social History Social History Substance Use Type: Marijuana Advance Directives: No Advance Directives Information Provided: No Do you have a plan to hurt others: No Plan Physical Exam ED Vital Signs: Vital Signs - 24 hr 02/15/25 23:11 Temperature 98.5 F Pulse Rate 96 Respiratory Rate 20 Blood Pressure 143/88 H Pulse Oximetry 99 Oxygen Delivery Method Room Air BMI result Body Mass Index 19.4 Course Course Course Narrative: RME, this is a rapid medical exam performed by Andrew More please refer to primary provider for complete H&P- 39-year-old female presents for evaluation of lower abdominal pain with vomiting and diarrhea. This has been going on for several months since the summer. She had outpatient labs today, creatinine was 0.8 her BUN was low at 7 and she was sent here for further evaluation. She is being worked up for celiac disease Medical Decision Making Lab Data 02/15/25 23:26 02/15/25 23:26 Labs: Lab Results 02/15/25 02/15/25 Range/Units 23:26 23:30 WBC 6.8 (4.8-10.8) X10*3/uL RBC 4.07 L (4.20-5.50) X10*6/uL Hgb 12.5 (12.0-16.0) g/dl Hct 36.4 L (37.0-47.0) % MCV 89.4 (80.0-98.0) fL MCH 30.7 (27.0-33.0) pg MCHC 34.3 (31.0-35.0) g/dl RDW 12.7 (11.0-16.0) % Plt Count 325 (160-400) X10*3/uL MPV 9.2 L (9.4-12.3) fL Immature Gran % (Auto) 0.1 (0.0-0.4) % Neut % (Auto) 61.1 (45-73) % Lymph % (Auto) 28.7 (20-40) % [place] % (Auto) 8.2 (2-11) % Eos % (Auto) 1.5 (0-4) % Baso % (Auto) 0.4 (0-2) % Lymph # (Auto) 2.0 (1.2-4.9) X10*3/uL [place] # (Auto) 0.6 (0.1-1.2) X10*3/uL Eos # (Auto) 0.1 (0.0-0.4) X10*3/uL Baso # (Auto) 0.0 (0.0-0.2) X10*3/uL Abs Immat Gran (auto) 0.01 (0.00-0.03) X10*3/uL Absolute Neuts (auto) 4.2 (2.0-8.3) x10*3/uL Absolute Nucleated RBC 0.000 (0.0-0.012) X10*3/uL Nucleated RBC % (auto) 0.0 (0.0-0.2) /100WBC Sodium 139 (135-145) mmol/L Potassium 3.6 (3.3-5.1) mmol/L Chloride 107 (96-108) mmol/L Carbon Dioxide 25 (22-29) mmol/L Anion Gap 11 L (12-20) BUN 8 L (9-16) mg/dL Creatinine 0.81 (0.5-1.4) mg/dL Estim Creat Clear Calc 80.1 Estimated GFR > 60 Random Glucose 116 H (60-115) mg/dL Calcium 8.9 (8.4-10.2) mg/dL Total Bilirubin 0.3 (0.0-1.0) mg/dL AST 24 (5-31) U/L ALT 18 (0-31) U/L Alkaline Phosphatase 42 (39-117) U/L Total Protein 6.6 (6.5-8.0) g/dL Albumin 4.3 (3.5-5.0) g/dL Lipase 21 (8-78) U/L Beta HCG, Quant < 2 mIU/mL Discharge Plan Discharge Clinical Impression: Abdominal pain Patient Disposition: Left W/O Completing Treatment Prescriptions: No Action lactulose 20 gram packet 20 g PO DAILY 2 Days Qty: 2 0RF Discharge Date/Time: 02/16/25 02:37
--- OUTSIDE RECORDS SUMMARY | 2025-02-15 23:31 | XMS_ITS | Patient Health Record ---
Author Organization [facility] Address [address] [place] [address] Care Team Providers Care Electrician Research Name Role Phone KALE JARRETT Primary Care Provider [phone] OMAR SHARIF [phone] Allergies Allergen (clinical drug ingredient) Drug/Non Drug Allergy documented on EMR Reaction Allergy Type Onset Date Status citalopram CeleXA rash (at 40mg at 20mg no problem) Drug Allergy Active paroxetine Paxil rash Drug Allergy Active quetiapine SEROquel sedated Drug Allergy Active oxycodone oxyCODONE vomiting/balance issues Drug Allergy Active Penicillin Rash Drug Allergy Active Reason For Referral Referred Organization [facility] alexis Referred Provider KALE JARRETT Referred Address [address] [place] [address],[place],[phone], Referred Provider Specialty Internal Med icine General Notes blank referral Referral Priority Routine Reason Error > [facility] r eferral needed for [facility] - [place] Scan Abdomen/Pelvis CPT 28730 - Diagnosis codes R14.0 & K52.9 - 8 visits Referred Organization [facility] Referred Provider KALE JARRETT Referred Address [address] [place] [address],[place],[phone], Referred Provider Specialty Internal Med icine General Notes this is an outgoing referral, copied t o outgoing Referral Priority Urgent Reason Increasing issues wi th postprandial abdominal bloating, diarrhea and intermittent constipation. Guaiac positive stool on rectal exam. Diagnosis 1 Postprandial abdomin al bloating (R14.0) Diagnosis 2 Guaiac + stool (R19. 5) Diagnosis 3 Intermittent constip ation (K59.09) Diagnosis 4 Chronic diarrhea (K5 2.9) Referral Organization [facility] Darion espinoza Referring Provider First Name OMAR Referring Provider Last Name CHANTE Referring Provider Speciality Internal M edicine Referred Provider Specialty Gastroentero logy General Notes ANTHONY SHARIFGERARD Demarco 1 10:33:06 AM > Please send referral to [facility] or if unable to get in can then switch to [facility] for: 3 years with waxing and waning abdominal bloating after eating, diarrhea, intermittent constipation, fatigue and weakness as well as nausea with only rare episodes of vomiting. Family history of colon cancer in maternal grandmother requiring colostomy. Referral Priority Urgent Reason [facility] Diagnosis 1 Postprandial abdomin al bloating (R14.0) Diagnosis 2 Chronic diarrhea (K5 2.9) Referral Organization [facility] Darion espinoza Referring Provider First Name KALE Referring Provider Last Name LUIZA Referring Provider Speciality Internal M edicine Referred Organization [facility] enter Outpatient Referred Address [address] [place] [id number], Referred Provider Specialty Radiology General Notes Joanne JONES Referral s 02/15/2025 03:21:06 PM > copied from 02/15/25 incoming referral > [facility] referral needed for [facility] - CT Scan Abdomen/Pelvis CPT 73176 - Diagnosis codes R14.0 & K52.9 - 8 visits, referral approved, fwd to [facility] Referral Priority Routine Medications Medication SIG (Take, Route, Frequency, Duration) Notes Start Date End Date Status buPROPion HCl ER (XL) 300 MG Tablet Extended Release 24 Hour 1 tablet in the morning Orally Once a day Active Ciclopirox 8 % Solution 1 application Ex ternally Once a day 06/18/2024 Active Escitalopram Oxalate 20 MG Tablet 1 tablet orally Once a day Active Immunizations Vaccine Route Administration Date Status Comme nts Influenza Unknown 11/13/2011 Administered Tdap (Adacel)11-64,State Supplied Unknown 11/13/2011 Ad ministered Social History Tobacco Use: Social History Observation [...] user Light cigarett e smoker (1-9 cigs/day) Smoking Are you a: never smoker Additional Details Category Social Info Options Details General 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, 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 asbestos exposure: no Past year's travels: [place] alcohol use: no drug use: no Hobbies/Exercise habits: Yoga, g ardening, walking Coffee/Tea/Soda: yes 1 coffee, No te a or soda Marital Status single experience no Living with boyfriend Pets 1 dog smokers in household no Section Notes: quit in 2020 quit in 2020 quit in 2020 smoked 5 cigare ttes a day Problems Problem Type SNOMED Code ICD Code Onset Dates Problem Status W/U Status Risk Notes Problem Tobacco abuse (3278550479) Tobacco Abuse (305.1) Active confirmed Problem Mixed anxiety and depressive disorder (574312909) Depression with anxiety (300.4) Active confirmed Problem Obstructive sleep apnea syndrome (82886679) KIZZY (obstructive sleep apnea) (G47.33) Active confirmed Problem Insomnia (323249858) Insomnia, unspecified (G47.00) Active confirmed Problem Dysthymia (90521061) Dysthymic disorder (F34.1) Active confirmed Problem Anxiety (22659107) Anxiety (F41.9) Active confirmed Problem Post traumatic stress disorder (47592276) Post traumatic stress disorder (F43.10) Active confirmed Problem New daily persistent headache (96080874304067 5) New daily persistent headache (G44.52) Active confirmed Problem Tobacco user (635138679) Cigarette nicotine dependence without complication (F17.210) Active confirmed Vital Signs Blood pressure diastolic 74 mm Hg 02/15/2025 Height 65.5 in 02/15/2025 Blood pressure systolic 112 mm Hg 02/15/2025 Weight 120 lbs 02/15/2025 BMI 19.66 kg/m2 02/15/2025 Encounters Encounter Location Date Provider Diagnosis [facility] [address] [place] [phone] 06/18/2024 KALE JARRETT Dysthymic disorder F34.1 and Nail fungus B35.1 [facility] [address] [place] [phone] 02/15/2025 OMAR SHARIF Postprandial abdominal bloating R14.0 ; Chronic diarrhea K52.9 ; Intermittent constipation K59.09 and Guaiac + stool R19.[address] [phone] 02/14/[address] [phone] 02/15/[address] [address] [facility] En[facility] Date Diagnosis (ICD Code) Assessment Notes Treatment Notes Treatment Clinical Notes Section Notes 06/18/2024 Dysthymic disorder (ICD-10 - F34.1) doing really well..will cont meds..call if nissues 06/18/2024 Nail fungus (ICD-10 - B35.1) rx sent 6-12 months 02/15/2025 Chronic diarrhea (ICD-10 - K52.9) See postprandial abdominal bloating plan 02/15/2025 Postprandial abdominal bloating (ICD-10 - R14.0) Labs ordered. Abdominal/pelvic CT ordered and pending approval. Referral to GI placed. Encouraged low-fat, lean protein, high-fiber diet. Avoid fried and fatty foods, junk food, alcohol. Watch coffee intake. Plenty of liquids. Further treatment and/or evaluation will be based on test results and GI evaluation. 02/15/2025 Intermittent constipation (ICD-10 - K59.09) See postprandial abdominal bloating plan 02/15/2025 Guaiac + stool (ICD-10 - R19.5) See postprandial abdominal bloating plan Plan Of Treatment Pending Test Test Name Order Date XR Chest 2 views 10/16/2022 CT Abdomen & Pelvis with Oral and IV con trast 02/15/2025 CBC W/OUT AUTOMATED DIFF 12/25/2021 Future Test Test Name Order Date CBC With Differential/Platelet-[id number] Hepatic Function Panel [id number] 2024 Celiac Ab tTG DGP [id number] 02/15/2025 Acute Hepatitis-[id number] 02/15/2025 Lipase-[id number] 02/15/2025 Amylase-[id number] 02/15/2025 BMP8+[id number] 02/15/2025 Next Appt Details Provider Name:KALE Graham, 06/21/2025 02:15:00 PM, [address] [place], [address], Insurance Providers Payer Name Payer Address Payer Phone Subscriber Number Group Number Insured Name Patient Relationship to Insured Coverage Start Date Coverage End Date [facility] [address] [place] [address] [id number] RITESH PIMENTEL Self - patient is the insured Medical (General) History Medical History History ICD Code Hx of Eating Disorder (age 13-22) anore jennifer with bulemic tendencies Tobacco Abuse Depression w/ anxiety Surgical History Surgery Date(Month/Year) Breast Reduction 11/2012 Hospitalization History Reason Date(Month/Year) hemorrhoids 09/05 [facility] [place] ankle pain 10/19 017 Partial Hospitalization for Eating Disor sandy 2008
--- OUTSIDE RECORDS SUMMARY | 2025-02-15 23:31 | XMS_ITS | Clinical Summary ---
Author Organization [facility] Address [address] [place] [address] Care Team Providers Care Transportation Attendant Name Role Phone Marcello Santos MD Primary Care Provider [phone] Allergies Active Allergy Reactions Criticality Noted Date Comments Penicillins Unknown/Patient and Family Unable to Define Medium 09/01/2021 Social History Tobacco Use Types Packs/Day Years Used Date Smoking Tobacco: Never Assessed Comments Unknown Sex and Gender Information Value Date Recorded Sex Assigned at Not on file Legal Sex Female 10:38 AM EDT Gender Identity Not on file Sexual Orientation Not on file Last Filed Vital Signs Vital Sign Reading Time Taken Comments Blood Pressure 150/90 09/01/2021 10:43 AM EDT Pulse 106 09/01/2021 10:43 AM EDT Temperature 36.7 C (98 F) 09/01/2021 10:43 AM EDT Respiratory Rate 18 09/01/2021 10:43 AM EDT Oxygen Saturation 99% 09/01/2021 10:43 AM EDT Inhaled Oxygen Concentration - - Weight - - Height - - Body Mass Index - - Plan of Treatment Health Maintenance Due Date Last Done Comments Hepatitis C Virus Screening 1985 HIV Screening 1998 DTaP/Tdap/Td Vaccines (1 - Tdap) 2004 Hepatitis B Vaccines (1 of 3 - 19+ 3-dose series) 2004 Pap Smear (Ages 21-65) 2006 Influenza Vaccine 09/17/2024 COVID-19 Vaccine (1 - 2024-2 6 season) 2024 HPV Vaccines (No Doses Required) Completed Pneumococcal Vaccine: Pediat mariana (0-5 Years) and At-Risk Patients (6 to 49 Years) Aged Out No longer eligible b ased on patient's age to complete this topic Insurance Care Teams Transportation Attendant Relationship Specialty Start Date End Date Marcello Santos MD [address] [place] [id number] PCP - General Internal Medicine 09/01/21
--- OUTSIDE RECORDS SUMMARY | 2025-02-15 23:31 | XMS_ITS | Clinical Summary ---
Author Organization [facility] Address [address] [place] [phone] Phone Care Team Providers Care Powertrain Calibration Engineer Name Role Phone Marcello Santos MD Primary Care Provider Allergies Active Allergy Reactions Criticality Noted Date Comments Citalopram 11/09/2018 Penicillins 11/09/2018 Medications escitalopram oxalate (LEXAPRO) 10 MG tabletIndicatio ns:anxiety with depression Take 10 mg by mouth daily. Indications: Anxiousness associated with Depression Active albuterol 90 mcg/actuation inhaler Inhale 2 puffs into the lungs every 6 (six) hours as needed for wheezing. 1 Inhaler 9 Active Active Problems No known active problems Social History Tobacco Use Types Packs/Day Years Used Date Smoking Tobacco: Every Day Alcohol Use Standard Drinks/Week Comments Never 0 (1 standard drink = 0.6 oz pur e alcohol) Education Answer Date Recorded Are you interested in more education? Not on ashvin e 06/14/2022 Are you concerned about learning? Not on file 06/14/2022 No 06/14/2022 No 06/14/2022 Digital Access Answer Date Recorded No 07/13/2022 No 07/13/2022 Reliable internet access at home? Not on file 07/13/2022 Device with a working camera? Not on file Comments No Sex and Gender Information Value Date Recorded Sex Assigned at Female 12/13/2018 11:03 AM EDT Legal Sex Female 12:03 PM EDT Gender Identity Female 12/13/2018 11:03 AM EDT Sexual Orientation Choose not to disclose 2019 7:36 PM EDT Last Filed Vital Signs Vital Sign Reading Time Taken Comments Blood Pressure 122/60 08/26/2019 8:32 PM EDT Pulse 78 08/26/2019 8:32 PM EDT Temperature 36.3 C (97.3 F) 08/26/2019 7:37 PM EDT Respiratory Rate 18 08/26/2019 8:32 PM EDT Oxygen Saturation 100% 08/26/2019 8:32 PM EDT Inhaled Oxygen Concentration - - Weight 68 kg (150 lb) 08/26/2019 7:37 PM EDT Height 172.7 cm (5' 8 ) 08/26/2019 7:37 PM EDT Body Mass Index 22.81 08/26/2019 7:37 PM EDT Plan of Treatment Health Maintenance Due Date Last Done Comments Adult Td,Tdap Booster 1985 DEPRESSION SCREENING 1997 SMOKING Hx and SMOKELESS TOBACCO SCREENING 1998 HEPATITIS C SCREENING 06/29/2003 HIV ONE-TIME SCREENING (18-6 5 YEARS) 06/29/2003 PNEUMOCOCCAL VACCINES (0-49 years) (1 of 2 - PCV) 2004 PAP SMEAR 2006 INFLUENZA VACCINE (#1) 2024 COVID-19 VACCINE (3 - 2024-2 6 season) 2024 05/03/2020, 04/06/2020 HEPATITIS A VACCINES Aged Out No long er eligible based on patient's age to complete this topic HIB VACCINES Aged Out No longer eligi ble based on patient's age to complete this topic MENINGOCOCCAL VACCINES (ACWY) Aged Out No longer eligible based on patient's age to complete this topic MENINGOCOCCAL VACCINES (B) Aged Out N o longer eligible based on patient's age to complete this topic Medical Devices Not on file Insurance [facility] HMO [facility] Address: [address] [address] Care Teams Powertrain Calibration Engineer Relationship Specialty Start Date End Date Marcello Santos MD [address] [place] [address] PCP - General Internal Medicine 11/09/18 Additional Source Comments The information contained in this document represents components of the legal health record. It is not the complete legal health record.[facility]
[2025-02-15 23:42] LABS: MANUAL DIFF FLAG NO
[2025-02-15 23:44] LABS: Hematocrit 36.4 % (37.0-47.0); Hemoglobin 12.5 g/dl (12.0-16.0); Imm Gran Abs Auto 0.01 X10*3/uL (0.00-0.03); Imm Gran Pct Auto 0.1 % (0.0-0.4); Lymphocytes Absolute Auto 2.0 X10*3/uL (1.2-4.9); Mean Corpuscular HGB Conc 34.3 g/dl (31.0-35.0); Mean Corpuscular Hemoglobin 30.7 pg (27.0-33.0); Mean Corpuscular Volume 89.4 fL (80.0-98.0); NRBC Abs Auto 0.000 X10*3/uL (0.0-0.012); NRBC Pct Auto 0.0 /100WBC (0.0-0.2); Platelet Count 325 X10*3/uL (160-400); Red Blood Count 4.07 X10*6/uL (4.20-5.50); White Blood Count 6.8 X10*3/uL (4.8-10.8)
[2025-02-15 23:57] LABS: Alanine Aminotransferase 18 U/L (0-31); Albumin Level 4.3 g/dL (3.5-5.0); Alkaline Phosphatase 42 U/L (39-117); Anion Gap 11 (12-20); Aspartate Amino Transferase 24 U/L (5-31); Blood Urea Nitrogen 8 mg/dL (9-16); Calcium 8.9 mg/dL (8.4-10.2); Carbon Dioxide 25 mmol/L (22-29); Chloride 107 mmol/L (96-108); Creatinine Clr Calc Pharmacy 80.1; Estimated Glomerular Filt Rate > 60; Lipase 21 U/L (8-78); Potassium 3.6 mmol/L (3.3-5.1); Sodium 139 mmol/L (135-145); Total Protein 6.6 g/dL (6.5-8.0)
== END 2025-02-16 02:37 | disposition left against medical advice (07) ==
PROVIDERS: Physician Assistant; Emergency Provider Emergency Medicine; PCP Internal Medicine
DX: R10.30 Lower abdominal pain, unspecified (principal)
CPT/HCPCS: 36415; 80053; 83690; 84702; 85025; 99281